=== PATIENT | male | born 1960 | race Caucasian/White ===

== ENCOUNTER 2019-05-28 13:18 | Emergency (ER) | payer MEDICAID ==
[~2019-05-28] VITALS: Ht 177.8 cm; Wt 113.6 kg
[2019-05-28 14:32] VITALS: BP 148/89
== END 2019-05-28 16:11 | disposition home or self-care (01) ==
LOC: EMS 13:18
DX: F10.20 Alcohol dependence, uncomplicated (principal); Z86.11 Personal history of tuberculosis; Z90.49 Acquired absence of other specified parts of digestive tract

== ENCOUNTER 2019-11-22 19:57 | Inpatient (IN) | payer MEDICAID ==
[~2019-11-22] VITALS: Ht 172.7 cm; Wt 94.7 kg
[2019-11-22] MEDS ORDERED: LORazepam 2 MG/ML VIAL IVP ONE (22:45)
[2019-11-22] MEDS ORDERED: MAGNESIUM SULFATE 2 GM, MVI, ADULT NO.1 WITH VIT K 10 ML, THIAMINE HCL 100 MG, FOLIC AC... IV ONE ×5 (22:45)
[2019-11-22 23:00] LABS: BASOPHILS % (AUTO) 0.3 % (0.0-2.0); EOSINOPHILS % (AUTO) 0.6 % (1.0-6.0); HEMATOCRIT 40.8 % (41-53); HEMOGLOBIN 13.2 g/dL (13.5-17.5); LYMPHOCYTES # (AUTO) 1.9 K/uL (1.0-4.8); LYMPHOCYTES % (AUTO) 14.7 % (22.0-44.0); MEAN CORPUSCULAR HEMOGLOBIN 23.2 pg (26.0-34.0); MEAN CORPUSCULAR HGB CONC 32.4 G/dL (31.0-37.0); MEAN CORPUSCULAR VOLUME 72 fL (80-100); MONOCYTES # (AUTO) 0.7 K/uL (0.1-1.0); MONOCYTES % (AUTO) 5.8 % (2.0-9.0); NEUTROPHILS # (AUTO) 10.1 K/uL (1.8-7.7); NEUTROPHILS % (AUTO) 78.6 % (40.0-70.0); PLATELET COUNT (AUTO) 312 K/uL (150-450); RED BLOOD CELL COUNT(AUTO) 5.71 MIL/uL (4.50-5.90); RED CELL DISTRIBUTION WIDTH 24.7 % (11.5-14.5)
[2019-11-22 23:13] LABS: INR 1.1 (0.9-1.1)
[2019-11-22 23:14] LABS: ANION GAP 9 mmol/L (8-16); CALCIUM, TOTAL 9.1 mg/dL (8.8-10.5); CARBON DIOXIDE 29 mmol/L (22-29); CHLORIDE 98 mmol/L (98-107); CREATININE 0.93 mg/dL (0.60-1.30); GLOMERULAR FILTR. RATE CALC > 60 mL/min (>60); GLUCOSE,RANDOM 81 mg/dL (70-110); POTASSIUM 3.4 mmol/L (3.5-5.1); SODIUM SERUM 136 mmol/L (136-145); UREA NITROGEN, BLOOD 12 mg/dL (7-18)
[2019-11-22 23:18] LABS: LACTIC ACID 1.5 mmol/L (0.4-2.0)
[2019-11-22 23:25] LABS: ALANINE AMINOTRANSFERASE 35 U/L (12-78); ALBUMIN 3.7 g/dL (3.4-5.0); ALKALINE PHOSPHATASE 118 U/L (46-116); ASPARTATE AMINOTRANSFERASE 27 U/L (15-37); BILIRUBIN,TOTAL 0.5 mg/dL (0.1-1.0); LIPASE 202 U/L (73-393); TOTAL PROTEIN, SERUM 7.5 g/dL (6.4-8.2); TROPONIN I < 0.02 ng/mL (0.00-0.05)
[2019-11-22 23:26] LABS: B-TYPE NATRIURETIC PEPTIDE 27 pg/mL (0-100)
[2019-11-22 23:37] LABS: AMMONIA 12 umol/L (11-32)
[2019-11-23] MEDS ORDERED: ACETAMINOPHEN 325 MG TABLET PO PRN
[2019-11-23] MEDS ORDERED: BISACODYL 10 MG RECTAL RECTAL SUPPOSITORY PR PRN
[2019-11-23] MEDS ORDERED: MAGNESIUM SULFATE 2 GM, MVI, ADULT NO.1 WITH VIT K 10 ML, THIAMINE HCL 100 MG, FOLIC AC... IV ONE ×5
[2019-11-23] MEDS ORDERED: ONDANSETRON HCL 4 MG/2 ML VIAL IVP PRN
[2019-11-23] MEDS ORDERED: MAGNESIUM HYDROXIDE SUSPENSION 30 ML UDCUP PO PRN
[2019-11-23] MEDS: HEPARIN SODIUM,PORCINE 5,000 UNITS/ML VIAL SQ SCH ×2 (00:39→09:13)
[2019-11-23] MEDS: ZOLPIDEM TARTRATE 5 MG TABLET PO PRN ×2 (00:47→21:16)
[2019-11-23] MEDS: HYDROCODONE/ACETAMINOPHEN 5-325 MG TABLET PO PRN (00:47)
[2019-11-23] MEDS: MORPHINE SULFATE 2 MG/ML SYRINGE IVP PRN ×2 (01:22→20:05)
[2019-11-23 03:35] LABS: APPEARANCE,URINE CLOUDY (CLEAR); BILIRUBIN,URINE NEGATIVE (NEGATIVE); GLUCOSE, URINE (UA) NEGATIVE (NEGATIVE); KETONES,URINE NEGATIVE (NEGATIVE); LEUKOCYTE ESTERASE ,URINE TRACE (NEGATIVE); NITRATE,URINE NEGATIVE (NEGATIVE); OCCULT BLOOD,URINE MODERATE (NEGATIVE); PROTEIN,URINE SEE CONFIRM (NEGATIVE)
[2019-11-23 03:40] LABS: AMPHET/METH SCREEN,URINE POSITIVE (NEGATIVE); BARBITURATE SCREEN, URINE NEGATIVE (NEGATIVE); BENZODIAZEPINES SCREEN,URINE NEGATIVE (NEGATIVE); CANNABINOID SCREEN,URINE NEGATIVE (NEGATIVE); COCAINE SCREEN,URINE NEGATIVE (NEGATIVE); METHADONE SCREEN, URINE NEGATIVE (NEGATIVE); OPIATE SCREEN,URINE NEGATIVE (NEGATIVE)
[2019-11-23 03:43] LABS: PHENCYCLIDINE SCREEN,URINE NEGATIVE (NEGATIVE)
[2019-11-23 03:45] LABS: BACTERIA,URINE None Seen /HPF (None Seen); SQUAMOUS EPITHELIAL CELL,UR Moderate /LPF (None Seen)
[2019-11-23 03:46] LABS: SULFOSALICYLIC ACID,URINE 2+ (Negative)
[2019-11-23 04:27] VITALS: BP 135/81
[2019-11-23 08:09] VITALS: BP 124/86
[2019-11-23] MEDS: DOCUSATE SODIUM 100 MG CAPSULE PO SCH ×2 (09:13→19:45)
[2019-11-23] MEDS: PANTOPRAZOLE SODIUM 40 MG DR TABLET PO SCH (09:13)
[2019-11-23 11:25] VITALS: BP 120/73
[2019-11-23] MEDS: LORazepam 2 MG/ML VIAL IM PRN ×2 (12:21→19:01)
[2019-11-23] MEDS ORDERED: MAGNESIUM OXIDE 400 MG TABLET PO PRN (14:15)
[2019-11-23] MEDS ORDERED: POTASSIUM CHL 10 MEQ/WATER 50 ML IV PRN (14:15)
[2019-11-23] MEDS ORDERED: MAGNESIUM SULFATE 2 GM/WATER 50 ML IV PRN (14:15)
[2019-11-23] MEDS ORDERED: POTASSIUM CHLORIDE 20 MEQ ER TABLET PO PRN (14:15)
[2019-11-23] MEDS ORDERED: MAGNESIUM SULFATE 4 GM/WATER 100 ML IV PRN (14:15)
[2019-11-23] MEDS ORDERED: SODIUM CHLORIDE 0.9% 500 ML IV ONE (15:14)
[2019-11-23 15:18] VITALS: BP 138/83
[2019-11-23 15:23] LABS: ALBUMIN 3.3 g/dL (3.4-5.0)
[2019-11-23 16:21] LABS: AMPHET/METH SCREEN,URINE NEGATIVE (NEGATIVE); BARBITURATE SCREEN, URINE NEGATIVE (NEGATIVE); BENZODIAZEPINES SCREEN,URINE NEGATIVE (NEGATIVE); CANNABINOID SCREEN,URINE NEGATIVE (NEGATIVE); COCAINE SCREEN,URINE NEGATIVE (NEGATIVE); METHADONE SCREEN, URINE NEGATIVE (NEGATIVE); OPIATE SCREEN,URINE POSITIVE (NEGATIVE)
[2019-11-23 16:23] LABS: PHENCYCLIDINE SCREEN,URINE NEGATIVE (NEGATIVE)
[2019-11-23 19:46] VITALS: BP 119/71
[2019-11-23 22:50] VITALS: BP 108/68
[2019-11-24 05:21] VITALS: BP 140/64
[2019-11-24 07:38] VITALS: BP 120/71
[2019-11-24] MEDS: DOCUSATE SODIUM 100 MG CAPSULE PO SCH ×2 (08:37→20:54)
[2019-11-24] MEDS: PANTOPRAZOLE SODIUM 40 MG DR TABLET PO SCH (08:37)
[2019-11-24] MEDS: LORazepam 1 MG TABLET PO PRN ×2 (08:37→12:30)
[2019-11-24] MEDS ORDERED: MULTIVITAMINS WITH MINERALS, THERAPEUTIC TABLET PO SCH (09:00)
[2019-11-24 11:32] VITALS: BP 137/79
[2019-11-24 11:58] LABS: ANION GAP 10 mmol/L (8-16); CALCIUM, TOTAL 8.9 mg/dL (8.8-10.5); CARBON DIOXIDE 28 mmol/L (22-29); CHLORIDE 105 mmol/L (98-107); CREATININE 0.67 mg/dL (0.60-1.30); GLOMERULAR FILTR. RATE CALC > 60 mL/min (>60); GLUCOSE,RANDOM 93 mg/dL (70-110); POTASSIUM 4.1 mmol/L (3.5-5.1); SODIUM SERUM 143 mmol/L (136-145); UREA NITROGEN, BLOOD 7 mg/dL (7-18)
[2019-11-24 12:14] LABS: BASOPHILS % (AUTO) 0.6 % (0.0-2.0); EOSINOPHILS % (AUTO) 1.4 % (1.0-6.0); HEMATOCRIT 39.5 % (41-53); HEMOGLOBIN 12.4 g/dL (13.5-17.5); LYMPHOCYTES # (AUTO) 1.9 K/uL (1.0-4.8); LYMPHOCYTES % (AUTO) 22.9 % (22.0-44.0); MEAN CORPUSCULAR HEMOGLOBIN 23.2 pg (26.0-34.0); MEAN CORPUSCULAR HGB CONC 31.5 G/dL (31.0-37.0); MEAN CORPUSCULAR VOLUME 74 fL (80-100); MONOCYTES # (AUTO) 0.7 K/uL (0.1-1.0); MONOCYTES % (AUTO) 8.1 % (2.0-9.0); NEUTROPHILS # (AUTO) 5.6 K/uL (1.8-7.7); PLATELET COUNT (AUTO) 242 K/uL (150-450); RED BLOOD CELL COUNT(AUTO) 5.36 MIL/uL (4.50-5.90); RED CELL DISTRIBUTION WIDTH 25.4 % (11.5-14.5)
[2019-11-24] MEDS: HYDROCODONE/ACETAMINOPHEN 5-325 MG TABLET PO PRN (12:30)
[2019-11-24 15:18] VITALS: BP 114/72
[2019-11-24 19:51] VITALS: BP 142/79
[2019-11-24] MEDS: ZOLPIDEM TARTRATE 5 MG TABLET PO PRN (20:55)
[2019-11-24 23:45] VITALS: BP 132/81
[2019-11-25 04:29] VITALS: BP 111/68
== END 2019-11-25 06:00 | disposition left against medical advice (07) | DRG 770 ==
LOC: EMS 19:57 → 6N 11-23 02:53
PROVIDERS: ADMIT Internal Medicine; ATTEND Internal Medicine
DX: F10.239 Alcohol dependence with withdrawal, unspecified (principal); R65.10 Systemic inflammatory response syndrome (SIRS) of non-infectious origin without acute organ dysfunction; E83.42 Hypomagnesemia; F11.23 Opioid dependence with withdrawal; D64.9 Anemia, unspecified; F17.210 Nicotine dependence, cigarettes, uncomplicated; E87.6 Hypokalemia; W18.39XA Other fall on same level, initial encounter; Z53.29 Procedure and treatment not carried out because of patient's decision for other reasons; I34.0 Nonrheumatic mitral (valve) insufficiency; E66.9 Obesity, unspecified; Z90.49 Acquired absence of other specified parts of digestive tract; Z68.31 Body mass index [BMI] 31.0-31.9, adult
CPT/HCPCS: 70450; 80307; 83605; 83735; 84132; 87086; 93005; G0480; J1644; J2060; J2270; J2405; J3411; J3475; J3490; J7030; J7040